=== PATIENT | female | born 2000 | race Hispanic/Latino ===

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

== ENCOUNTER 2022-02-10 20:58 | Emergency (ER) | payer OTHER ==
[2022-02-10] MEDS ORDERED: HYDROCODONE/APAP 5/325 MG TAB ONE (21:47)
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
[2022-02-10 23:26] VITALS: TEMP 98.9
[2022-02-10 23:27] VITALS: BP 116/68; O2SAT 99
== END 2022-02-10 23:05 | disposition home or self-care (01) ==
LOC: ER 20:58
DX: S09.90XA Unspecified injury of head, initial encounter (principal); S29.012A Strain of muscle and tendon of back wall of thorax, initial encounter
CPT/HCPCS: 70450; 71046; 72125; 99284

== ENCOUNTER 2024-04-25 09:53 | Emergency (ER) | payer OTHER ==
--- OUTSIDE RECORDS SUMMARY | 2024-04-25 09:58 | XMS REPORT | Continuity of Care Document ---
Author Name Unknown Address [address] [facility] [address]. [address] [place] [address] [facility] thconnect Address [address] [facility]. [address] [place] [address] Care Team Providers Care Casserole Preparer Name Role Phone Umer Du Philomena Primary Care Physician + [phone] JOVITA MAGALLON Attending Clinician Unavailable Naun Jovita DONOVAN Attending Clinician [phone] [facility]ending [facility]ician Unavailable Taylor Flor CNM Attending Clinician [phone] SHAYY CARRASQUILLO Attending Clinician Unavailable SAMANTHA NEFF Attending Clinician Unavailable LARISSA RODRIGUEZ Attending Clinician Unavailable 2, [facility] Attending Clinician Unavailable Samantha Neff MD Attending Clinician [phone] Doctor Unassigned, O'Neill Attending Clinician U Luigi Martinez CRNA Attending Clinician Dex Campos MD Attending Clinicia n Shea Wilder PA-C Attending Clinician [phone] SHEA WILDER Attending Clinician Unavailable CHEL TRAVIS Attending Clinician CITLALI DaveL Attending Clinician Unavashabbir labmei Ultrasound, Ang-Mfm Attending Clinician UnavailSwathi Rivers MD Attending Clinician + SWATHI MENG Attending Clinician Unadiane ailable Guillaume DO, Mk Attending Clinician [phone] GUILLAUME, MK Attending Clinician Unavailable 1, [facility] Attending Clinician Unavailab Cherelle Christiansen MD Attending Clinician [phone] CHERELLE GARRISON Attending Clinician Unavailable CHERELLE GARRISON Attending Clinician Unavailable UNKNOWN, ATTENDING Attending Clinician Unavailab mei White, [facility] Attending Clinician Un available Adwoa Dinh Attending Clinician [phone] Sherry Vitale MD Attending Clinician [phone] SHERRY VITALE Attending Clinician UnavailLarissa Leyva MD Attending Clinician [phone] Umer Du Attending Clinician [phone] MANISHA VACA Attending Clinician Unavailable Lab, [facility] Fam Pob I Attending Clinician Unavailab Jory Wood Attending Clinician [phone] JORY ALANIS Attending Clinician Unavailable Omaghomi [employer] F[employer] STITCHER, Johnayemshabbir Attending Clinician [phone] Manisha Ho Attending Clinician [phone] SAMANTHA NEFF Admitting Clinician Unavailable Samantha Neff MD Admitting Clinician [phone] Payers Payer Name Policy Type Policy Number Effective Date Expirati on Date Source Problems Condition Name Condition Details Condition Category Status Onset Date Resolution Date Last Treatment Date Treating Clinician Comments Source Presence of intrauteri ne contracept sondra device Presence of intrauteri ne contracept sondra device Disease Active 01-10 00:00: 00 [facility] Encounter for screening for maternal depression Encounter for screening for maternal depression Disease Active 8- 00:00: 00 [facility] Anemia of mother in , antepartum Anemia of mother in , antepartum Disease Active 4-05 00:00: 00 [facility] No known active problems No known active problems Disease [facility] Liveborn , of [place] , born in hospital by vaginal delivery Liveborn infant, of conklin , born in hospital by vaginal delivery Disease Resolve d 2022-0 7-11 00:00: 00 2022-11-20 00:00:00 2022-11-20 16:27:34 [facility] 39 weeks gestation of 39 weeks gestation of Disease Resolve d 2022-0 7-10 00:00: 00 2022-11-20 00:00:00 2022-11-20 16:27:37 [facility] Positive GBS test Positive GBS test Disease Resolve d 2022-0 7-10 00:00: 00 2022-11-20 00:00:00 2022-11-20 16:27:36 [facility] Anemia of mother in , antepartum Anemia of mother in , antepartum Disease Resolve d 2022-0 4-05 00:00: 00 2022-11-20 00:00:00 2022-11-20 16:27:38 [facility] High-risk in third trimester High-risk in third trimester Disease Resolve d 2021-1 2-05 00:00: 00 2022-11-20 00:00:00 2022-11-20 16:27:39 [facility] Nausea and vomiting during prior to 22 weeks gestation Nausea and vomiting during prior to 22 weeks gestation Disease Resolve d 2021-1 2-05 00:00: 00 2022-09-15 00:00:00 2022-09-15 15:22:00 [facility] Nausea and vomiting during prior to 22 weeks gestation Nausea and vomiting during prior to 22 weeks gestation Disease Resolve d 2021-1 2-05 00:00: 00 2022-09-15 00:00:00 2022-09-15 15:22:00 [facility] Allergies, Adverse Reactions, Alerts Allergy Name Allergy Type Status Severity Reaction(s) Onset Date Inactive Date Treating Clinician Comments Source NO KNOWN ALLERGIE S Drug Class Active [facility] Social History Social Habit Start Date Stop Date Quantity Comments Source ASSERTION 2022-02-03 00:00:00 [facility] History of tobacco use Passive smoker [facility] Alcoholic beverage intake 2024-01-18 00:00:00 2024-01-18 00:00:00 0 /d [facility] History of Social function 2024-01-18 00:00:00 2024-01-18 00:00:00 [facility] Alcohol intake 2023-04-19 00:00:00 2023-04-19 00:00:00 0 /d [facility] Tobacco use and exposure 2022-10-23 00:00:00 2022-10-23 00:00:00 Smokeless tobacco non-user [facility] Tobacco Comment 2022-10-23 00:00:00 2022-10-23 00:00:00 Last approx 1 year ago [facility] Exposure to SARS-CoV-2 (event) 2022-08-14 00:00:00 2022-08-24 15:40:00 Not sure [facility] Sex assigned at 2002 00:00:00 2000 00:00:00 [facility] Smoking Status Start Date Stop Date Source Never smoked tobacco [facility] Medications Ordered Medication Name Filled Medication Name Start Date Stop Date Current Medication? Ordering Clinician Indication Dosage Frequency Signature (SIG) Comments Components Source metroNIDAZO LE 500 mg tablet 2023-04 00:00: 00 Yes [id number] 500mg Take 1 tablet by mouth every 12 (twelve) hours. [facility] fluconazole 150 mg tablet 2023-04 00:00: 00 01-21 04:59 :00 No [id number] 150mg Take 1 tablet by mouth once now for 1 dose. [facility] metroNIDAZO LE 500 mg tablet 11-14 00:00: 00 11-22 04:59 :00 No [id number] 500mg Take 1 tablet by mouth in the morning and 1 tablet in the evening. Do all this for 7 days. [facility] fluconazole (DIFLUCAN) 150 mg tablet 11-14 00:00: 00 11-15 04:59 :00 No [id number] 150mg Take 1 tablet by mouth once now for 1 dose. [facility] levonorgest reL (KYLEENA) IUD 1 Device 01-10 21:00: 00 01-10 20:15 :00 No [id number] 1{devic e} [facility] miSOPROStoL 200 mcg tablet 11-20 00:00: 00 01-10 00:00 :00 No [id number] 200ug Take 1 tablet by mouth SEE-INSTRU CTIONS. Take one tab the night before and one tab the morning of procedure [facility] ferrous sulfate tablet 325 mg 10-25 13:00: 00 Yes 325mg 325 mg, Oral, BID, First dose on Sun10/25/22 at 0800, Until Discontinu ed, Routine [facility] rho(D) immune globulin (RHOGAM) syringe 300 mcg 10-24 06:36: 22 Yes 300ug 300 mcg, Intramuscu lar, ONCE, For 1 dose, Conditiona l, Routine [facility] witch Klaus (TUCKS) 50 % topical pad 10-24 06:36: 01 Yes Topical, Q4HPRN, Starting on Sun10/24/22 at 0136, Until Discontinu ed, Routine, rectal/hem orrhoidal pain [facility] HYDROcodone -acetaminop hen (NORCO 5) 5-325 mg tablet 1 tablet 10-24 06:35: 26 Yes 1{tbl} 1 tablet, Oral, Q6HPRN, Starting on Sun10/24/22 at 0135, Until Discontinu ed, Routine, Pain (scale 7-10) [facility] ibuprofen (IBU) tablet 600 mg 10-24 06:35: 26 Yes 600mg 600 mg, Oral, Q6HPRN, Starting on Sun10/24/22 at 0135, Until Discontinu ed, Routine, Pain (scale 4-6) [facility] acetaminoph en (TYLENOL) tablet 650 mg 10-24 06:35: 26 Yes 650mg 650 mg, Oral, Q6HPRN, Starting on Sun10/24/22 at 013, Until Discontinu ed, Routine, Pain (scale 1-3) [facility] diphenhydrA MINE (BENADRYL) tablet 25 mg 10-24 06:35: 26 Yes 25mg 25 mg, Oral, Q6HPRN, Starting on Sun10/24/22 at 134, Until Discontinu ed, Routine, Sleep, Itching [facility] ondansetron (ZOFRAN (PF)) injection 4 mg 10-24 06:35: 26 Yes 4mg 4 mg, Slow IV Push, Q8HPRN, Starting on Sun10/24/22 at 134, Until Discontinu ed, Routine, Nausea and Vomiting (N/V) [facility] simethicone (GAS RELIEF (SIMETHICON E)) chewable tablet 160 mg 10-24 06:35: 26 Yes 160mg 160 mg, Oral, PC+HSPRN, Starting on Sun10/24/22 at 013, Until Discontinu ed, Routine, Gas [facility] docusate (COLACE) capsule 200 mg 10-24 06:35: 26 Yes 200mg 200 mg, Oral, QDAILYPRN, Starting on Sun10/24/22 at 013, Until Discontinu ed, Routine, Constipati on [facility] magnesium hydroxide (MILK OF MAGNESIA) 400 mg/5 mL suspension 30 mL 10-24 06:35: 26 Yes 30mL 30 mL, Oral, QDAILYPRN, Starting on Sun10/24/22 at 134, Until Discontinu ed, Routine, Constipati on [facility] benzocaine- menthol (DERMOPLAST ) 20-0.5 % topical spray 10-24 06:35: 26 Yes Topical, PRN, Starting on Sun10/24/22 at 0135, Until Discontinu ed, Routine, Perineum discomfort [facility] diphenoxyla te-atropine (LOMOTIL) 2.5-0.025 mg tablet 1 tablet 10-24 06:22: 00 10-24 06:22 :00 No 1{tbl} 1 tablet, Oral, ONCE, 1 dose, On Sun10/24/22 at 0130, [facility] pivacaine 2 mcg/mL-0.1 % (PF) in NS 200 mL epidural infusion RTU 10-24 01:06: 00 10-24 11:32 :43 No Epidural, ONCE INTRA PROCEDURE, Starting on Sun10/23/22 at 2006, Until Discontinu ed, Routine, Intra-op [facility] lidocaine-e pinephrine (XYLOCAINE W/EPINEPHRI NE) 1.5 %-1:200,000 injection 10-24 00:57: 00 10-24 11:32 :43 No Intraderma l, ONCE INTRA PROCEDURE, Starting on Sun10/23/22 at 1957, Until Discontinu ed, Routine, Intra-op [facility] vitamin w/FA tablet 10-24 00:00: 00 11-13 00:00 :00 No [id number] 1{tbl} Take 1 tablet by mouth in the morning. [facility] docusate 100 mg capsule 10-24 00:00: 00 11-13 00:00 :00 No [id number] 200mg Take 2 capsules by mouth once daily as needed for Constipati on. [facility] ferrous sulfate 325 mg (65 mg iron) tablet 10-24 00:00: 00 11-13 00:00 :00 No [id number] 325mg Take 1 tablet by mouth in the morning and 1 tablet in the evening. [facility] ibuprofen 600 mg tablet 10-24 00:00: 00 11-13 00:00 :00 No [id number] 600mg Take 1 tablet by mouth every 6 (six) hours as needed (Pain). Take with food or milk. [facility] oxytocin (PITOCIN) 30 units in NS 500 mL IV infusion 10-23 23:57: 32 10-24 06:36 :20 No 2mU/min at 2-40 mL/hr, IV Infusion, TITRATE, Starting on Sun10/23/22 at 1857, Until Sun10/24/22 at 0136, PUNEET [facility] misoprostol (CYTOTEC) quarter-tab let 25 mcg 10-23 15:45: 00 10-24 06:36 :20 No 25ug 25 mcg, Vaginal, Q4H ABX, First dose on Sun10/23/22 at 1045, Until Discontinu ed, Routine [facility] misoprostol (CYTOTEC) quarter-tab let 25 mcg 10-23 15:45: 00 10-23 17:10 :00 No 25ug 25 mcg, Oral, ONCE, 1 dose, On Sun10/23/22 at 1045, Routine [facility] FENTanyl PF (SUBLIMAZE (PF)) injection 50 mcg 10-23 15:36: 06 10-24 06:36 :20 No 50ug 50 mcg, Slow IV Push, Q2HPRN, Starting on Sun10/23/22 at 1036, Until Sun10/24/22 at 0136, Routine, contractio n pain without an epidural and SVE < 8 cm and Cat I strip [facility] tranexamic acid (CYKLOKAPRO N) 1,000 mg in NaCl 0.9% (NS) 250 mL piggyback 10-23 15:36: 06 10-24 06:44 :00 No 1000mg 1,000 mg, IV Piggyback, PRN, 1 dose, Starting on Sun10/23/22 at 1036, Until Discontinu ed, Administer over 10 Minutes, 250 mL [facility] carboprost (HEMABATE) injection 250 mcg 10-23 15:36: 06 10-24 06:20 :00 No 250ug 250 mcg, Intramuscu lar, Q2HPRN, 1 dose, Starting on Sun10/23/22 at 1036, Until Discontinu ed, Routine, PPH [facility] methylergon ovine (METHERGINE ) injection 0.2 mg 10-23 15:36: 06 10-24 06:14 :00 No .2mg 0.2 mg, Intramuscu lar, Q4HPRN, 1 dose, Starting on Sun10/23/22 at 1036, Until Discontinu ed, Routine, PPH [facility] D5W-LR IV infusion 1,000 mL 10-23 15:36: 05 10-24 06:36 :20 No 1000mL at 1-125 mL/hr, IV Infusion, TITRATE, Starting on Sun10/23/22 at 1036, Until Sun10/24/22 at 0136, Routine [facility] metroNIDAZO LE (FLAGYL) 500 mg tablet 07-20 00:00: 00 09-29 00:00 :00 No [id number] 500mg Take 1 tablet by mouth every 12 (twelve) hours. [facility] fluconazole (DIFLUCAN) 150 mg tablet 07-20 00:00: 00 07-21 04:59 :00 No [id number] 150mg Take 1 tablet by mouth once now for 1 dose. [facility] ferrous sulfate (IRON, FERROUS SULFATE,) 325 mg (65 mg iron) tablet 07-19 00:00: 00 10-24 00:00 :00 No [id number] 325mg Take 1 tablet by mouth in the morning and 1 tablet in the evening. [facility] PNV 102-iron-fo late-dha (VITAFOL FE PLUS) 90 mg iron- 1 mg-200 mg Cap 2021-04 00:00: 00 Yes [id number] Take 1 TAB-CAP/M2 by mouth daily. [facility] PNV 102-iron-fo late-dha (VITAFOL FE PLUS) 90 mg iron- 1 mg-200 mg Cap 2021-04 00:00: 00 10-24 00:00 :00 No [id number] Take 1 TAB-CAP/M2 by mouth daily. [facility] pyridoxine, VITAMIN B-6, (VITAMIN B-6) 25 mg tablet 2022-1 2-05 00:00: 00 09-29 00:00 :00 No [id number] 25mg Take 1 tablet by mouth every 6 (six) hours as needed for Nausea and Vomiting (N/V). [facility] doxylamine (UNISOM, DOXYLAMINE, ) 25 mg tablet 2021-04 00:00: 00 09-29 00:00 :00 No [id number] 25mg Take 1 tablet by mouth at bedtime as needed for Nausea and Vomiting (N/V). [facility] metroNIDAZO LE 500 mg tablet 01-06 00:00: 00 09-29 00:00 :00 No [id number] 500mg Take 1 tablet by mouth every 12 (twelve) hours. [facility] azithromyci n 500 mg tablet 09-21 00:00: 00 01-06 00:00 :00 No [id number] 1000mg Take 2 tablets by mouth daily. [facility] fluconazole 150 mg tablet 09-21 00:00: 00 09-22 04:59 :00 No [id number] 150mg Take 1 tablet by mouth once now for 1 dose. [facility] metroNIDAZO LE 500 mg tablet 09-20 00:00: 00 01-06 00:00 :00 No [id number] 500mg Take 1 tablet by mouth every 12 (twelve) hours. [facility] VYVANSE 50 mg capsule 08 00:00: 00 10-24 00:00 :00 No 50mg Take 50 mg by mouth every morning. [facility] LOESTRIN FE (LOESTRIN FE 1/20) 1 mg-20 mcg (21)/75 mg (7) tablet 2019-04 00:00: 00 01-04 00:00 :00 No [id number] 1{tbl} Take 1 tablet by mouth daily. [facility] MYDAYIS 37.5 mg CT24 9-14 00:00: 00 01-04 00:00 :00 No TAKE 1 CAPSULE BY MOUTH EVERY DAY IN THE MORNING [facility] dextroamphe tamine-amph etamine 5 mg tablet 06-19 00:00: 00 01-04 00:00 :00 No TAKE 1 TABLET BY MOUTH EVERY DAY AT LUNCH [facility] Immunizations Ordered Immunization Name Filled Immunization Name Date Status Comments Source Influenza Virus Vaccine Quad IM, Preserv and ABX Free 6 MO-64 YRS (FLUCELVAX) 2023-04-19 00:00:00 Completed [facility] Influenza Virus Vaccine Quad IM, Preserv and ABX Free 6 MO-64 YRS (FLUCELVAX) 2023-04-19 00:00:00 Completed [facility] Influenza Virus Vaccine Quad IM, Preserv and ABX Free 6 MO-64 YRS (FLUCELVAX) 2023-04-19 00:00:00 Completed [facility] Influenza Virus Vaccine Quad IM, Preserv and ABX Free 6 MO-64 YRS (FLUCELVAX) 2023-04-19 00:00:00 Completed [facility] TDAP 2022-08-10 00:00:00 Completed [facility] TDAP 2022-08-10 00:00:00 Completed [facility] TDAP 2022-08-10 00:00:00 Completed [facility] TDAP 2022-08-10 00:00:00 Completed [facility] TDAP 2022-08-10 00:00:00 Completed [facility] TDAP 2022-08-10 00:00:00 Completed [facility] TDAP 2022-08-10 00:00:00 Completed [facility] TDAP 2022-08-10 00:00:00 Completed [facility] TDAP 2022-08-10 00:00:00 Completed [facility] TDAP 2022-08-10 00:00:00 Completed [facility] TDAP 2022-08-10 00:00:00 Completed [facility] TDAP 2022-08-10 00:00:00 Completed [facility] TDAP 2022-08-10 00:00:00 Completed [facility] TDAP 2022-08-10 00:00:00 Completed [facility] TDAP 2022-08-10 00:00:00 Completed [facility] TDAP 2022-08-10 00:00:00 Completed [facility] TDAP 2022-08-10 00:00:00 Completed [facility] Influenza Virus Vaccine Quad IM, Preserv and ABX Free 6 MO-64 YRS 2022-03-20 00:00:00 Completed [facility] Influenza Virus Vaccine Quad IM, Preserv and ABX Free 6 MO-64 YRS (FLUCELVAX) 2022-03-20 00:00:00 Completed [facility] Influenza Virus Vaccine Quad IM, Preserv and ABX Free 6 MO-64 YRS (FLUCELVAX) 2022-03-20 00:00:00 Completed [facility] Influenza Virus Vaccine Quad IM, Preserv and ABX Free 6 MO-64 YRS (FLUCELVAX) 2022-03-20 00:00:00 Completed [facility] Influenza Virus Vaccine Quad IM, Preserv and ABX Free 6 MO-64 YRS (FLUCELVAX) 2022-03-20 00:00:00 Completed [facility] Influenza Virus Vaccine Quad IM, Preserv and ABX Free 6 MO-64 YRS 2022-03-20 00:00:00 Completed [facility] Influenza Virus Vaccine Quad IM, Preserv and ABX Free 6 MO-64 YRS 2022-03-20 00:00:00 Completed [facility] Influenza Virus Vaccine Quad IM, Preserv and ABX Free 6 MO-64 YRS 2022-03-20 00:00:00 Completed [facility] Influenza Virus Vaccine Quad IM, Preserv and ABX Free 6 MO-64 YRS 2022-03-20 00:00:00 Completed [facility] Influenza Virus Vaccine Quad IM, Preserv and ABX Free 6 MO-64 YRS 2022-03-20 00:00:00 Completed [facility] Influenza Virus Vaccine Quad IM, Preserv and ABX Free 6 MO-64 YRS 2022-03-20 00:00:00 Completed [facility] Influenza Virus Vaccine Quad IM, Preserv and ABX Free 6 MO-64 YRS 2022-03-20 00:00:00 Completed [facility] Influenza Virus Vaccine Quad IM, Preserv and ABX Free 6 MO-64 YRS 2022-03-20 00:00:00 Completed [facility] Influenza Virus Vaccine Quad IM, Preserv and ABX Free 6 MO-64 YRS 2022-03-20 00:00:00 Completed [facility] Influenza Virus Vaccine Quad IM, Preserv and ABX Free 6 MO-64 YRS 2022-03-20 00:00:00 Completed [facility] Influenza Virus Vaccine Quad IM, Preserv and ABX Free 6 MO-64 YRS 2022-03-20 00:00:00 Completed [facility] Influenza Virus Vaccine Quad IM, Preserv and ABX Free 6 MO-64 YRS 2022-03-20 00:00:00 Completed [facility] Influenza Virus Vaccine Quad IM, Preserv and ABX Free 6 MO-64 YRS 2022-03-20 00:00:00 Completed [facility] Influenza Virus Vaccine Quad IM, Preserv and ABX Free 6 MO-64 YRS 2022-03-20 00:00:00 Completed [facility] Influenza Virus Vaccine Quad IM, Preserv and ABX Free 6 MO-64 YRS 2022-03-20 00:00:00 Completed [facility] Influenza Virus Vaccine Quad IM, Preserv and ABX Free 6 MO-64 YRS 2022-03-20 00:00:00 Completed [facility] Influenza Virus Vaccine Quad IM, Preserv and ABX Free 6 MO-64 YRS 2022-03-20 00:00:00 Completed [facility] Influenza Virus Vaccine Quad IM, Preserv and ABX Free 6 MO-64 YRS 2022-03-20 00:00:00 Completed [facility] Influenza Virus Vaccine Quad IM, Preserv and ABX Free 6 MO-64 YRS 2022-03-20 00:00:00 Completed [facility] Influenza Virus Vaccine Quad IM, Preserv and ABX Free 6 MO-64 YRS 2022-03-20 00:00:00 Completed [facility] Influenza Virus Vaccine Quad IM, Preserv and ABX Free 6 MO-64 YRS 2022-03-20 00:00:00 Completed [facility] Influenza Virus Vaccine Quad IM, Preserv and ABX Free 6 MO-64 YRS 2022-03-20 00:00:00 Completed [facility] Influenza Virus Vaccine Quad IM, Preserv and ABX Free 6 MO-64 YRS 2022-03-20 00:00:00 Completed [facility] Influenza Virus Vaccine Quad IM, Preserv and ABX Free 6 MO-64 YRS 2022-03-20 00:00:00 Completed [facility] Influenza Virus Vaccine Quad IM, Preserv and ABX Free 6 MO-64 YRS 2022-03-20 00:00:00 Completed [facility] Influenza Virus Vaccine Quad IM, Preserv and ABX Free 6 MO-64 YRS 2022-03-20 00:00:00 Completed [facility] Influenza Virus Vaccine Quad IM, Preserv and ABX Free 6 MO-64 YRS 2022-03-20 00:00:00 Completed [facility] Influenza Virus Vaccine Quad IM, Preserv and ABX Free 6 MO-64 YRS 2022-03-20 00:00:00 Completed [facility] Influenza Virus Vaccine Quad IM, Preserv and ABX Free 6 MO-64 YRS 2022-03-20 00:00:00 Completed [facility] Influenza Virus Vaccine Quad IM, Preserv and ABX Free 6 MO-64 YRS 2022-03-20 00:00:00 Completed [facility] Influenza Virus Vaccine Quad IM, Preserv and ABX Free 6 MO-64 YRS 2022-03-20 00:00:00 Completed [facility] Influenza Virus Vaccine Quad IM, Preserv and ABX Free 6 MO-64 YRS 2022-03-20 00:00:00 Completed [facility] Influenza Virus Vaccine Quad IM, Preserv and ABX Free 6 MO-64 YRS 2022-03-20 00:00:00 Completed [facility] Influenza Virus Vaccine Quad IM, Preserv and ABX Free 6 MO-64 YRS 2022-03-20 00:00:00 Completed [facility] Influenza Virus Vaccine Quad IM, Preserv and ABX Free 6 MO-64 YRS 2022-03-20 00:00:00 Completed [facility] HPV9 2017-11-13 00:00:00 Completed HPV9 2017-11-13 00:00:00 Completed HPV9 2017-11-13 00:00:00 Completed HPV9 2017-11-13 00:00:00 Completed HPV9 2016-11-17 00:00:00 Completed HPV9 2016-11-17 00:00:00 Completed HPV9 2016-11-17 00:00:00 Completed HPV9 2016-11-17 00:00:00 Completed TDAP 2015-10-12 00:00:00 Completed [facility] Meningococcal Polysaccharide (groups A, C, Y and W-135) conjugate vaccine (MCV4P) 2015-10-12 00:00:00 Completed TDAP 2015-10-12 00:00:00 Completed [facility] Meningococcal Polysaccharide (groups A, C, Y and W-135) conjugate vaccine (MCV4P) 2015-10-12 00:00:00 Completed TDAP 2015-10-12 00:00:00 Completed [facility] Meningococcal Polysaccharide (groups A, C, Y and W-135) conjugate vaccine (MCV4P) 2015-10-12 00:00:00 Completed TDAP 2015-10-12 00:00:00 Completed [facility] Meningococcal Polysaccharide (groups A, C, Y and W-135) conjugate vaccine (MCV4P) 2015-10-12 00:00:00 Completed Influenza Virus Vaccine Quad .5 mL IM 6+ MO (FLUZONE/FLULAVAL/FL UARIX) 2014-04-20 00:00:00 Completed Influenza Virus Vaccine Quad .5 mL IM 6+ MO (FLUZONE/FLULAVAL/FL UARIX) 2014-04-20 00:00:00 Completed Influenza Virus Vaccine Quad .5 mL IM 6+ MO (FLUZONE/FLULAVAL/FL UARIX) 2014-04-20 00:00:00 Completed Influenza Virus Vaccine Quad .5 mL IM 6+ MO (FLUZONE/FLULAVAL/FL UARIX) 2014-04-20 00:00:00 Completed DTaP, Unspecified Formulation 2006-11-30 00:00:00 Completed Proquad (MMR/VARICELLA) 2006-11-30 00:00:00 Completed IPV 2006-11-30 00:00:00 Completed DTaP, Unspecified Formulation 2006-11-30 00:00:00 Completed Proquad (MMR/VARICELLA) 2006-11-30 00:00:00 Completed IPV 2006-11-30 00:00:00 Completed DTaP, Unspecified Formulation 2006-11-30 00:00:00 Completed Proquad (MMR/VARICELLA) 2006-11-30 00:00:00 Completed IPV 2006-11-30 00:00:00 Completed DTaP, Unspecified Formulation 2006-11-30 00:00:00 Completed Proquad (MMR/VARICELLA) 2006-11-30 00:00:00 Completed IPV 2006-11-30 00:00:00 Completed HEPATITIS A 2006-06-19 00:00:00 Completed HEPATITIS A 2006-06-19 00:00:00 Completed HEPATITIS A 2006-06-19 00:00:00 Completed HEPATITIS A 2006-06-19 00:00:00 Completed HEPATITIS A 2005-06-26 00:00:00 Completed Pneumococcal 7 Conjugate, PCV7 (Prevnar7) 2005-06-26 00:00:00 Completed HEPATITIS A 2005-06-26 00:00:00 Completed Pneumococcal 7 Conjugate, PCV7 (Prevnar7) 2005-06-26 00:00:00 Completed HEPATITIS A 2005-06-26 00:00:00 Completed Pneumococcal 7 Conjugate, PCV7 (Prevnar7) 2005-06-26 00:00:00 Completed HEPATITIS A 2005-06-26 00:00:00 Completed Pneumococcal 7 Conjugate, PCV7 (Prevnar7) 2005-06-26 00:00:00 Completed DTaP, Unspecified Formulation 2004-06-27 00:00:00 Completed HIB 4 Dose Schedule 2004-06-27 00:00:00 Completed DTaP, Unspecified Formulation 2004-06-27 00:00:00 Completed HIB 4 Dose Schedule 2004-06-27 00:00:00 Completed DTaP, Unspecified Formulation 2004-06-27 00:00:00 Completed HIB 4 Dose Schedule 2004-06-27 00:00:00 Completed DTaP, Unspecified Formulation 2004-06-27 00:00:00 Completed HIB 4 Dose Schedule 2004-06-27 00:00:00 Completed DTaP, Unspecified Formulation 2003-12-14 00:00:00 Completed HIB 4 Dose Schedule 2003-12-14 00:00:00 Completed MMR 2003-12-14 00:00:00 Completed IPV 2003-12-14 00:00:00 Completed Varicella (varivax)(chicken pox) 2003-12-14 00:00:00 Completed DTaP, Unspecified Formulation 2003-12-14 00:00:00 Completed HIB 4 Dose Schedule 2003-12-14 00:00:00 Completed MMR 2003-12-14 00:00:00 Completed IPV 2003-12-14 00:00:00 Completed Varicella (varivax)(chicken pox) 2003-12-14 00:00:00 Completed DTaP, Unspecified Formulation 2003-12-14 00:00:00 Completed HIB 4 Dose Schedule 2003-12-14 00:00:00 Completed MMR 2003-12-14 00:00:00 Completed IPV 2003-12-14 00:00:00 Completed Varicella (varivax)(chicken pox) 2003-12-14 00:00:00 Completed DTaP, Unspecified Formulation 2003-12-14 00:00:00 Completed HIB 4 Dose Schedule 2003-12-14 00:00:00 Completed MMR 2003-12-14 00:00:00 Completed IPV 2003-12-14 00:00:00 Completed Varicella (varivax)(chicken pox) 2003-12-14 00:00:00 Completed DTaP, Unspecified Formulation 2003-07-07 00:00:00 Completed Hep B, Adol or Pedi Dosage 2003-07-07 00:00:00 Completed HIB 4 Dose Schedule 2003-07-07 00:00:00 Completed Pneumococcal 7 Conjugate, PCV7 (Prevnar7) 2003-07-07 00:00:00 Completed IPV 2003-07-07 00:00:00 Completed DTaP, Unspecified Formulation 2003-07-07 00:00:00 Completed Hep B, Adol or Pedi Dosage 2003-07-07 00:00:00 Completed HIB 4 Dose Schedule 2003-07-07 00:00:00 Completed Pneumococcal 7 Conjugate, PCV7 (Prevnar7) 2003-07-07 00:00:00 Completed IPV 2003-07-07 00:00:00 Completed DTaP, Unspecified Formulation 2003-07-07 00:00:00 Completed Hep B, Adol or Pedi Dosage 2003-07-07 00:00:00 Completed HIB 4 Dose Schedule 2003-07-07 00:00:00 Completed Pneumococcal 7 Conjugate, PCV7 (Prevnar7) 2003-07-07 00:00:00 Completed IPV 2003-07-07 00:00:00 Completed DTaP, Unspecified Formulation 2003-07-07 00:00:00 Completed Hep B, Adol or Pedi Dosage 2003-07-07 00:00:00 Completed HIB 4 Dose Schedule 2003-07-07 00:00:00 Completed Pneumococcal 7 Conjugate, PCV7 (Prevnar7) 2003-07-07 00:00:00 Completed IPV 2003-07-07 00:00:00 Completed DTaP, Unspecified Formulation 2003-01-02 00:00:00 Completed HIB 4 Dose Schedule 2003-01-02 00:00:00 Completed Pneumococcal 7 Conjugate, PCV7 (Prevnar7) 2003-01-02 00:00:00 Completed IPV 2003-01-02 00:00:00 Completed DTaP, Unspecified Formulation 2003-01-02 00:00:00 Completed HIB 4 Dose Schedule 2003-01-02 00:00:00 Completed Pneumococcal 7 Conjugate, PCV7 (Prevnar7) 2003-01-02 00:00:00 Completed IPV 2003-01-02 00:00:00 Completed DTaP, Unspecified Formulation 2003-01-02 00:00:00 Completed HIB 4 Dose Schedule 2003-01-02 00:00:00 Completed Pneumococcal 7 Conjugate, PCV7 (Prevnar7) 2003-01-02 00:00:00 Completed IPV 2003-01-02 00:00:00 Completed DTaP, Unspecified Formulation 2003-01-02 00:00:00 Completed HIB 4 Dose Schedule 2003-01-02 00:00:00 Completed Pneumococcal 7 Conjugate, PCV7 (Prevnar7) 2003-01-02 00:00:00 Completed IPV 2003-01-02 00:00:00 Completed Hep B, Adol or Pedi Dosage 2002 00:00:00 Completed Hep B, Adol or Pedi Dosage 2002 00:00:00 Completed Hep B, Adol or Pedi Dosage 2002 00:00:00 Completed Hep B, Adol or Pedi Dosage 2002 00:00:00 Completed Hep B, Adol or Pedi Dosage 2002 00:00:00 Completed Hep B, Adol or Pedi Dosage 2002 00:00:00 Completed Hep B, Adol or Pedi Dosage 2002 00:00:00 Completed Hep B, Adol or Pedi Dosage 2002 00:00:00 Completed Influenza Virus Vaccine Quad IM, Preserv and ABX Free 6 MO-64 YRS (FLUCELVAX) Unknown Completed [facility] TDAP Unknown Completed [facility] Influenza Virus Vaccine Quad IM, Preserv and ABX Free 6 MO-64 YRS (FLUCELVAX) Unknown Completed [facility] TDAP Unknown Completed [facility] Influenza Virus Vaccine Quad IM, Preserv and ABX Free 6 MO-64 YRS (FLUCELVAX) Unknown Completed [facility] TDAP Unknown Completed [facility] Influenza Virus Vaccine Quad IM, Preserv and ABX Free 6 MO-64 YRS (FLUCELVAX) Unknown Completed [facility] TDAP Unknown Completed [facility] TDAP Unknown Completed [facility] TDAP Unknown Completed [facility] Influenza Virus Vaccine Quad IM, Preserv and ABX Free 6 MO-64 YRS (FLUCELVAX) Unknown Completed [facility] Influenza Virus Vaccine Quad IM, Preserv and ABX Free 6 MO-64 YRS (FLUCELVAX) Unknown Completed [facility] Influenza Virus Vaccine Quad IM, Preserv and ABX Free 6 MO-64 YRS (FLUCELVAX) Unknown Completed [facility] TDAP Unknown Completed [facility] Influenza Virus Vaccine Quad IM, Preserv and ABX Free 6 MO-64 YRS (FLUCELVAX) Unknown Completed [facility] TDAP Unknown Completed [facility] DTaP, Unspecified Formulation Unknown Completed [facility] Influenza Virus Vaccine Quad .5 mL IM 6+ MO (FLUZONE/FLULAVAL/FL UARIX) Unknown Completed [facility] HEPATITIS A Unknown Completed [facility] Hep B, Adol or Pedi Dosage Unknown Completed [facility] HIB 4 Dose Schedule Unknown Completed [facility] HPV9 Unknown Completed [facility] Meningococcal Polysaccharide (groups A, C, Y and W-135) conjugate vaccine (MCV4P) Unknown Completed [facility] MMR Unknown Completed [facility] Proquad (MMR/VARICELLA) Unknown Completed [facility] Pneumococcal 7 Conjugate, PCV7 (Prevnar7) Unknown Completed [facility] IPV Unknown Completed [facility] Varicella (varivax)(chicken pox) Unknown Completed [facility] Influenza Virus Vaccine Quad IM, Preserv and ABX Free 6 MO-64 YRS (FLUCELVAX) Unknown Completed [facility] TDAP Unknown Completed [facility] DTaP, Unspecified Formulation Unknown Completed [facility] Influenza Virus Vaccine Quad .5 mL IM 6+ MO (FLUZONE/FLULAVAL/FL UARIX) Unknown Completed [facility] HEPATITIS A Unknown Completed [facility] Hep B, Adol or Pedi Dosage Unknown Completed [facility] HIB 4 Dose Schedule Unknown Completed [facility] HPV9 Unknown Completed [facility] Meningococcal Polysaccharide (groups A, C, Y and W-135) conjugate vaccine (MCV4P) Unknown Completed [facility] MMR Unknown Completed [facility] Proquad (MMR/VARICELLA) Unknown Completed [facility] Pneumococcal 7 Conjugate, PCV7 (Prevnar7) Unknown Completed [facility] IPV Unknown Completed [facility] Varicella (varivax)(chicken pox) Unknown Completed [facility] Vital Signs Vital Name Observation Time Observation Value Comments S ource Systolic blood pressure 2024-01-18 18:09:00 111 mm[Hg] [facility] Diastolic blood pressure 2024-01-18 18:09:00 65 mm[Hg] [facility] Heart rate 2024-01-18 18:09:00 85 /min [facility] Body temperature 2024-01-18 18:09:00 36.61 Shira [facility] Respiratory rate 2024-01-18 18:09:00 16 /min [facility] Body height 2024-01-18 18:09:00 149.9 cm [facility] Body weight 2024-01-18 18:09:00 59.024 kg [facility] BMI 2024-01-18 18:09:00 26.28 kg/m2 [facility] Systolic blood pressure 2023-11-14 19:41:00 115 mm[Hg] [facility] Diastolic blood pressure 2023-11-14 19:41:00 70 mm[Hg] [facility] Heart rate 2023-11-14 19:41:00 90 /min [facility] Body temperature 2023-11-14 19:41:00 35.83 Shira [facility] Respiratory rate 2023-11-14 19:41:00 18 /min [facility] Body height 2023-11-14 19:41:00 [facility] 2023-11-14 19:41:00 57.698 [facility] BMI 2023-11-14 19:41:00 25.69 kg/m2 [facility] Systolic blood pressure 2023-04-19 21:18:00 111 mm[Hg] [facility] Diastolic blood pressure 2023-04-19 21:18:00 62 mm[Hg] [facility] Heart rate 2023-04-19 21:18:00 67 /min [facility] Respiratory rate 2023-04-19 21:18:00 18 /min [facility] Body height 2023-04-19 21:18:00 149.9 cm [facility] Body weight 2023-04-19 21:18:00 53.071 kg [facility] BMI 2023-04-19 21:18:00 23.63 kg/m2 [facility] Systolic blood pressure 2023-01-10 14:56:00 109 mm[Hg] [facility] Diastolic blood pressure 2023-01-10 14:56:00 65 mm[Hg] [facility] Heart rate 2023-01-10 14:56:00 80 /min [facility] Body temperature 2023-01-10 14:56:00 37.11 Shira [facility] Respiratory rate 2023-01-10 14:56:00 18 /min [facility] Body height 2023-01-10 14:56:00 149.9 [facility] Body weight 2023-01-10 14:56:00 53.524 kg [facility] BMI 2023-01-10 14:56:00 23.83 kg/m2 [facility] Systolic blood pressure 2022-11-20 21:45:00 112 mm[Hg] [facility] Diastolic blood pressure 2022-11-20 21:45:00 70 mm[Hg] [facility] Heart rate 2022-11-20 21:45:00 66 /min [facility] Body temperature 2022-11-20 21:45:00 36.67 Shira [facility] Body height 2022-11-20 21:45:00 149.9 cm [facility] Body weight 2022-11-20 21:45:00 55.883 kg [facility] BMI 2022-11-20 21:45:00 24.88 kg/m2 [facility] Systolic blood pressure 2022-10-25 12:38:00 111 mm[Hg] [facility] Diastolic blood pressure 2022-10-25 12:38:00 57 mm[Hg] [facility] Body temperature 2022-10-25 12:38:00 36.5 Shira [facility] Heart rate 2022-10-25 06:04:00 89 /min [facility] Respiratory rate 2022-10-25 06:04:00 18 /min [facility] Oxygen saturation in Arterial blood by Pulse oximetry 2022-10-25 06:04:00 100 /min [facility] Body height 2022-10-23 15:20:00 149.9 cm [facility] Body weight 2022-10-23 15:20:00 68.947 kg [facility] BMI 2022-10-23 15:20:00 30.70 kg/m2 [facility] Systolic blood pressure 2022-10-16 19:51:00 107 mm[Hg] [facility] Diastolic blood pressure 2022-10-16 19:51:00 59 mm[Hg] [facility] Heart rate 2022-10-16 19:51:00 91 /min [facility] Body temperature 2022-10-16 19:51:00 36.89 Shira [facility] Respiratory rate 2022-10-16 19:51:00 18 /min [facility] Body height 2022-10-16 19:51:00 149.9 cm [facility] Body weight 2022-10-16 19:51:00 68.04 kg [facility] BMI 2022-10-16 19:51:00 30.30 kg/m2 [facility] Systolic blood pressure 2022-09-28 20:53:00 105 mm[Hg] [facility] Diastolic blood pressure 2022-09-28 20:53:00 57 mm[Hg] [facility] Heart rate 2022-09-28 20:53:00 81 /min [facility] Body temperature 2022-09-28 20:53:00 36.61 Shira [facility] Respiratory rate 2022-09-28 20:53:00 18 /min [facility] Body height 2022-09-28 20:53:00 149.9 cm [facility] Body weight 2022-09-28 20:53:00 67.042 kg [facility] BMI 2022-09-28 20:53:00 29.85 kg/m2 [facility] Oxygen saturation in Arterial blood by Pulse oximetry 2022-09-28 20:53:00 99 /min [facility] Systolic blood pressure 2022-09-15 20:11:00 99 mm[Hg] [facility] Diastolic blood pressure 2022-09-15 20:11:00 63 mm[Hg] [facility] Heart rate 2022-09-15 20:11:00 81 /min [facility] Respiratory rate 2022-09-15 20:11:00 18 /min [facility] Body height 2022-09-15 20:11:00 149.9 cm [facility] Body weight 2022-09-15 20:11:00 66.679 kg [facility] BMI 2022-09-15 20:11:00 29.69 kg/m2 [facility] Systolic blood pressure 2022-08-24 21:00:00 100 mm[Hg] [facility] Diastolic blood pressure 2022-08-24 21:00:00 65 mm[Hg] [facility] Heart rate 2022-08-24 21:00:00 97 /min [facility] Body temperature 2022-08-24 21:00:00 36.83 Shira [facility] Respiratory rate 2022-08-24 21:00:00 18 /min [facility] Body height 2022-08-24 21:00:00 [facility] 2022-08-24 21:00:00 64.411 [facility] BMI 2022-08-24 21:00:00 28.68 kg/m2 [facility] Systolic blood pressure 2022-08-10 20:38:00 95 mm[Hg] [facility] Diastolic blood pressure 2022-08-10 20:38:00 60 mm[Hg] [facility] Heart rate 2022-08-10 20:38:00 106 /min [facility] Body temperature 2022-08-10 20:38:00 36.67 Shira [facility] Body height 2022-08-10 20:38:00 149.9 [facility] Body weight 2022-08-10 20:38:00 63.231 kg [facility] BMI 2022-08-10 20:38:00 28.16 kg/m2 [facility] Systolic blood pressure 2022-07-19 13:36:00 101 mm[Hg] [facility] Diastolic blood pressure 2022-07-19 13:36:00 61 mm[Hg] [facility] Heart rate 2022-07-19 13:36:00 80 /min [facility] Body temperature 2022-07-19 13:36:00 36.67 Shira [facility] Respiratory rate 2022-07-19 13:36:00 18 /min [facility] Body height 2022-07-19 13:36:00 149.9 cm [facility] Body weight 2022-07-19 13:36:00 62.143 kg [facility] BMI 2022-07-19 13:36:00 27.67 kg/m2 [facility] Systolic blood pressure 2022-07-13 21:02:00 105 mm[Hg] [facility] Diastolic blood pressure 2022-07-13 21:02:00 61 mm[Hg] [facility] Heart rate 2022-07-13 21:02:00 85 /min [facility] Body temperature 2022-07-13 21:02:00 36.67 Shira [facility] Respiratory rate 2022-07-13 21:02:00 18 /min [facility] Body height 2022-07-13 21:02:00 149.9 cm [facility] Body weight 2022-07-13 21:02:00 63.685 kg [facility] BMI 2022-07-13 21:02:00 28.36 kg/m2 [facility] Systolic blood pressure 2022-06-15 20:06:00 106 mm[Hg] [facility] Diastolic blood pressure 2022-06-15 20:06:00 67 mm[Hg] [facility] Heart rate 2022-06-15 20:06:00 97 /min [facility] Body temperature 2022-06-15 20:06:00 37.5 Shira [facility] Respiratory rate 2022-06-15 20:06:00 18 /min [facility] Body height 2022-06-15 20:06:00 149.9 cm [facility] Body weight 2022-06-15 20:06:00 58.514 kg [facility] BMI 2022-06-15 20:06:00 26.05 kg/m2 [facility] Systolic blood pressure 2022-05-15 19:20:00 103 mm[Hg] [facility] Diastolic blood pressure 2022-05-15 19:20:00 66 mm[Hg] [facility] Heart rate 2022-05-15 19:20:00 83 /min [facility] Body temperature 2022-05-15 19:20:00 36.56 Shira [facility] Body height 2022-05-15 19:20:00 149.9 cm [facility] Body weight 2022-05-15 19:20:00 55.974 kg [facility] BMI 2022-05-15 19:20:00 24.92 kg/m2 [facility] Systolic blood pressure 2022-04-17 17:08:00 106 mm[Hg] [facility] Diastolic blood pressure 2022-04-17 17:08:00 68 mm[Hg] [facility] Heart rate 2022-04-17 17:08:00 94 /min [facility] Body temperature 2022-04-17 17:08:00 37.33 Shira [facility] Respiratory rate 2022-04-17 17:08:00 16 /min [facility] Body height 2022-04-17 17:08:00 149.9 cm [facility] Body weight 2022-04-17 17:08:00 52.345 kg [facility] BMI 2022-04-17 17:08:00 23.31 kg/m2 [facility] Systolic blood pressure 2022-03-20 19:40:00 100 mm[Hg] [facility] Diastolic blood pressure 2022-03-20 19:40:00 67 mm[Hg] [facility] Heart rate 2022-03-20 19:40:00 72 /min [facility] Body temperature 2022-03-20 19:40:00 36.44 Shira [facility] Respiratory rate 2022-03-20 19:40:00 18 /min [facility] Body height 2022-03-20 19:40:00 149.9 cm [facility] Body weight 2022-03-20 19:40:00 50.531 kg [facility] BMI 2022-03-20 19:40:00 22.50 kg/m2 [facility] Systolic blood pressure 2022-02-28 18:27:00 127 mm[Hg] [facility] Diastolic blood pressure 2022-02-28 18:27:00 73 mm[Hg] [facility] Heart rate 2022-02-28 18:27:00 78 /min [facility] Body temperature 2022-02-28 18:27:00 37 Shira [facility] Respiratory rate 2022-02-28 18:27:00 18 /min [facility] Body height 2022-02-28 18:27:00 149.9 cm [facility] Body weight 2022-02-28 18:27:00 51.982 kg [facility] BMI 2022-02-28 18:27:00 23.15 kg/m2 [facility] Oxygen saturation in Arterial blood by Pulse oximetry 2022-02-28 18:27:00 97 /min [facility] Systolic blood pressure 2022-01-04 20:16:00 100 mm[Hg] [facility] Diastolic blood pressure 2022-01-04 20:16:00 61 mm[Hg] [facility] Heart rate 2022-01-04 20:16:00 62 /min [facility] Body temperature 2022-01-04 20:16:00 36.56 Shira [facility] Respiratory rate 2022-01-04 20:16:00 16 /min [facility] Body height 2022-01-04 20:16:00 149.9 cm [facility] Body weight 2022-01-04 20:16:00 52.164 kg [facility] BMI 2022-01-04 20:16:00 23.23 kg/m2 [facility] Oxygen saturation in Arterial blood by Pulse oximetry 2022-01-04 20:16:00 96 /min [facility] Systolic blood pressure 2021-09-20 14:27:00 105 mm[Hg] [facility] Diastolic blood pressure 2021-09-20 14:27:00 64 mm[Hg] [facility] Heart rate 2021-09-20 14:27:00 83 /min [facility] Body temperature 2021-09-20 14:27:00 36.72 Shira [facility] Body height 2021-09-20 14:27:00 149.9 cm [facility] Body weight 2021-09-20 14:27:00 49.261 kg [facility] BMI 2021-09-20 14:27:00 21.93 kg/m2 [facility] Body mass index (BMI) [Percentile] Per age and sex 2021-09-20 14:27:00 54.96 % [facility] Procedures Procedure Date / Time Performed Performing Clinician Source HIV 1/2 AG-AB WITH REFLEX 2024-02-15 17:48:00 Rae Magallon [facility] SYPHILIS IGG/IGM 2024-02-15 17:48:00 [facility] 2023-04-19 21:48:00 Samantha Neff [facility] FLU VACC ([id number]), 6 MO-64 YRS, .5ML, IM, QUAD (FLUCELVAX) 2023-04-19 21:24:36 Samantha Neff [facility] ASSIGNMENT OF BENEFITS 2023-04-19 20:48:26 Docto r Unassigned, [facility] DOCUMENTATION SPECIALIST CLINIC ULTRASOUND 2023-01-10 05:01:00 Doc tor Unassigned, [facility] DISCLOSURE AND CONSENT MEDICAL & SURGICAL PROCEDURES - FEMALM 2023-01-10 05:01:00 Doctor Unassigned, [facility] POCT TEST 2023-01-10 00:00:00 Samantha Neff [facility] CBC WITH DIFF 2022-10-25 06:03:00 Samantha Neff [facility] CENTRAL NEURAXIAL BLOCK 2022 00:50:00 Dex High [facility] CBC WITH DIFF 2022-10-23 15:44:00 Samantha Neff [facility] HEPATITIS B SURFACE ANTIGEN 2022-10-23 15:44:00 Samantha Neff [facility] HB ABO GROUPING 2022-10-23 15:44:00 Samantha Neff [facility] RHO (D) IMMUNE GLOBULIN 2022-10-23 15:44:00 Samantha Neff [facility] ADC OR HECTOR ONLY - RPR 2022-10-23 15:44:00 Rafael Neff [facility] HIV 1/2 AG-AB WITH REFLEX 2022-10-23 15:44:00 Rafael Neff [facility] ASSIGNMENT OF BENEFITS 2022-10-22 17:59:48 Docto r Unassigned, [facility] CONSENT/REFUSAL FOR DIAGNOSIS AND TREATMENT 2022-10-22 17:57:55 Doctor Unassigned, [facility] POCT URINALYSIS W/O SPECIFIC GRAVITY 2022-10-16 00:00:00 Shea Wilder [facility] >14 WEEKS US LIMITED 2022-09-29 09:59:44 Samantha Neff [facility] DSU PRE-OP 2022-09-28 05:01:00 Doctor Unass igned, [facility] POCT URINALYSIS W/O SPECIFIC GRAVITY 2022-09-28 00:00:00 Samantha Neff [facility] POCT URINALYSIS W/O SPECIFIC GRAVITY 2022-09-15 00:00:00 Chel Travis [facility] POCT URINALYSIS W/O SPECIFIC GRAVITY 2022-08-24 00:00:00 Samantha Neff [facility] TDAP VACCINE, >11 YRS, IM 2022-08-10 20:48:42 Rafael Neff [facility] POCT URINALYSIS W/O SPECIFIC GRAVITY 2022-08-10 00:00:00 Samantha Neff [facility] POCT URINALYSIS W/O SPECIFIC GRAVITY 2022-07-19 00:00:00 Shea Wilder [facility] POCT URINALYSIS W/O SPECIFIC GRAVITY 2022-07-13 21:02:00 Samantha Neff [facility] POCT URINALYSIS W/O SPECIFIC GRAVITY 2022-06-15 20:07:00 Shea Wilder [facility] PATIENT FINANCIAL POLICY 2022-06-15 19:51:19 Doctor Unassigned, [facility] SECOND AND THIRD TRIMESTER ULTRASOUND 2022-06-02 20:48:00 Shea Wilder [facility] POCT URINALYSIS W/O SPECIFIC GRAVITY 2022-05-15 00:00:00 AishwaryaSamantha [facility] POCT URINALYSIS W/O SPECIFIC GRAVITY 2022-04-17 17:11:00 Shea Wilder [facility] SCANNED LAB RESULTS 2022-04-03 06:01:00 Doctor Vinicio petty, [facility] INSURANCE CORRESPONDENCE 2022-03-21 06:01:00 Doc tor Unassigned, [facility] [facility] <14 WEEKS US LIMITED 2022-03-20 20:20:21 AishwaryaSamantha Betito [facility] FLU VACC (), 6 MO-64 YRS, .5ML, IM, QUAD (FLUCELVAX) 2022-03-20 19:58:21 Samantha Neff [facility] POCT TEST 2022-03-20 00:00:00 Aishwarya Samantha [facility] POCT URINALYSIS W/O SPECIFIC GRAVITY 2022-03-20 00:00:00 Samantha Neff [facility] ASSIGNMENT OF BENEFITS 2022-02-28 18:11:38 Docto r Unassigned, O'Neill [facility] REFERRAL- REQUEST/RESPONSE 2022-02-01 05:01:00 Doctor Unassigned, O[facility]Neill [facility] Encounters Start Date/Time End Date/Time Encounter Type Admission Type Attending [facility] Facility Care Department Encounter ID Source 2024-02-15 00:00:00 2024-02-15 12:50:06 Letter (Out) Jovita Magallon [facility] DOCUMENTATION SPECIALIST [facility] MATERNAL & CHILD [facility] 1.2.840.114 350.1.13.10 4.2.7.2.686 [id number] 107 [id number] [facility] 2024-02-15 12:45:00 2024-02-15 12:48:47 Outpatient R JOVITA MAGALLON [facility] [id number] [facility] 2024-02-15 12:45:00 2024-02-15 12:48:47 Rand Sewer Visit Lab, Jovita Arenas Lab, Yennyteresa [facility] DOCUMENTATION SPECIALIST [facility] 1.2.840.114 350.1.13.10 4.2.7.2.686 [id number] 107 [id number] [facility] 2024-02-15 12:00:00 2024-02-15 12:00:00 Outpatient R [facility] [id number] [facility] 2024-02-06 00:00:00 2024-02-06 15:29:40 Refill Jovita Magallon [facility] DOCUMENTATION SPECIALIST [facility] & CHILD [facility] 1.2.840.114 350.1.13.10 4.2.7.2.686 [id number] 107 [id number] [facility] 2024-01-21 00:00:00 2024-01-21 10:23:22 Case Management NaunSumeetJovita [facility] DOCUMENTATION SPECIALIST [facility] CHILD [facility] 1.2.840.114 350.1.13.10 4.2.7.2.686 [id number] 107 [id number] [facility] 2024-01-18 00:00:00 2024-01-18 13:44:32 Letter (Out) NaunJovtia [facility] DOCUMENTATION SPECIALIST [facility] & [facility]ILD [facility] 1.2.840.114 350.1.13.10 4.2.7.2.686 [id number] 107 [id number] [facility] 2024-01-18 13:15:00 2024-01-18 13:43:29 Outpatient R NAUNSUMEETJOVITA [facility] [id number] [facility] 2024-01-18 13:15:00 2024-01-18 13:43:29 Office Visit NaunSumeetJovita [facility] DOCUMENTATION SPECIALIST [facility] CHILD [facility] 1.2.840.114 350.1.13.10 4.2.7.2.686 [id number] 107 [id number] [facility] 2023-11-15 00:00:00 2023-11-15 11:42:47 Case Management Taylor Flor [facility] DOCUMENTATION SPECIALIST [facility] 1..840.114 350.1.13.10 4.2.7.2.686 [id number] 107 [id number] [facility] 2023-11-14 14:30:00 2023-11-14 15:23:06 Outpatient R NAUNJOVITA [facility] [id number] [facility] 2023-11-14 14:30:00 2023-11-14 15:23:06 Office Visit Jovita Magallon [facility] DOCUMENTATION SPECIALIST [facility] MATERNAL [facility] 1..840.114 350.1.13.10 4.2.7.2.686 [id number] 107 [id number] [facility] 2023-07-28 13:40:00 2023-07-28 14:44:00 Emergency X LISSALORISHAYY [facility] ERT [id number] [facility] 2023-07-28 13:40:00 2023-07-28 14:44:00 Emergency [facility] 1..840.114 350.1.13.10 4.2.7.2.686 [id number] [facility] 2023-06-14 15:00:00 2023-06-14 15:00:00 Outpatient R SAMANTHA NEFF [facility] [id number] [facility] 2023-06-01 09:30:00 2023-06-01 09:30:00 Outpatient R LARISSA RDORIGUEZ [facility] [id number] [facility] 2023-04-19 16:00:00 2023-04-19 16:20:05 Rand Sewer Visit 2, Adc Lab Samantha Neff [facility] 1.2.840.114 350.1.13.10 4.2.7.2.686 [id number] 353 [id number] [facility] 2023-04-19 15:00:00 2023-04-19 15:33:08 Outpatient R SAMANTHA NEFF [facility] [id number] [facility] 2023-04-19 15:00:00 2023-04-19 15:33:08 Office Visit Samantha Neff [facility] BUILDING 1.840.114 350.1.13.10 4.2.7.2.686 [id number] 134 [id number] [facility] 2023-04-19 00:00:00 2023-04-19 00:00:00 Orders Only Doctor Unassigned, O'Neill [facility] 1.84.114 350.1.13.10 4.2.7.2.686 [id number] [facility] 2023-02-21 14:00:00 2023-02-21 14:00:00 Outpatient R SAMANTHA NEFF [facility] [id number] [facility] 2023-01-17 13:30:00 2023-01-17 13:30:00 Outpatient R [facility] [id number] [facility] 2023-01-10 10:00:00 2023-01-10 10:57:03 Outpatient R SAMANTHA NEFF [facility] [id number] [facility] 2023-01-10 10:00:00 2023-01-10 10:57:03 Office Visit Samantha Neff [facility] BUILDING 1.840.114 350.1.13.10 4.2.7.2.686 [id number] 134 [id number] [facility] 2023-01-10 00:00:00 2023-01-10 00:00:00 Orders Only Doctor Unassigned, O'Neill [facility] 1.84.114 350.1.13.10 4.2.7.2.686 [id number] [facility] 2023-01-05 00:00:00 2023-01-05 00:00:00 Telephone Samantha Neff [facility] BUILDING 1.840.114 350.1.13.10 4.2.7.2.686 [id number] 134 [id number] [facility] 2022-12-11 15:00:00 2022-12-11 15:00:00 Outpatient R SAMANTHA NEFF [facility] [id number] [facility] 2022-12-10 00:00:00 2022-12-10 00:00:00 [facility] BU[facility] 1.2.840.114 350.1.13.10 4.2.7.2.686 [id number] 134 [id number] [facility] 2022-11-20 16:15:00 2022-11-20 16:55:08 Outpatient R SAMANTHA NEFF [facility] [id number] [facility] 2022-11-20 16:15:00 2022-11-20 16:55:08 [facility] 1.2.840.114 350.1.13.10 4.2.7.2.686 [id number] 134 [id number] [facility] 2022-10-23 10:00:00 2022-10-25 09:30:00 Inpatient P SAMANTHA NEFF [facility] JOHN [id number] [facility] 2022-10-23 10:00:00 2022-10-25 09:30:00 Hospital Encounter Samantha Neff [facility] 1.2840.114 350.1.13.10 4.2.7.2.686 [id number] 083 [id number] [facility] 2022 20:01:01 2022 20:01:01 Anesthesia Event Luigi Doherty [facility] 1.2.840.114 350.1.13.10 4.2.7.2.686 [id number] [id number] [facility] 2022-10-23 19:38:00 2022 06:32:00 Anesthesia Event Dex Sue [facility] 1.2840.114 350.1.13.10 4.2.7.2.686 [id number] [id number] [facility] 2022-10-16 15:15:00 2022-10-16 15:30:00 Routine Visit Shea Wilder [facility] BUILDING 1.2.840.114 350.1.13.10 4.2.7.2.686 [id number] 134 [id number] [facility] 2022-10-16 15:15:00 2022-10-16 15:15:00 Outpatient R MEÑO [facility] [id number] [facility] 2022-10-04 13:00:00 2022-10-04 13:15:00 Rand Sewer Visit 2, Adc Lab Samantha Neff [facility] BUILDING 1.2.840.114 350.1.13.10 4.2.7.2.686 [id number] [facility] 2022-10-04 13:00:00 2022-10-04 13:00:[address] [facility] [id number] [facility] 2022-09-29 15:00:00 2022-09-29 15:00:00 [id number] 2022-09-28 16:00:00 2022-09-28 16:26:[address] [facility] [id number] [facility] 2022-09-28 16:00:00 2022-09-28 16:26:36 Routine Visit Samantha Neff [facility] BUILDING 1.2.840.114 350.1.13.10 4.2.7.2.686 [id number] 134 [id number] [facility] 2022-09-28 00:00:00 2022-09-28 00:00:00 Orders Only Doctor Unassigned, O'Neill [facility] 1.114 350.1.13.10 4.2.7.2.686 [id number] [facility] 2022-09-15 15:00:00 2022-09-15 15:21:35 Outpatient R CHEL MANCERA CHEL [facility] [id number] [facility] 2022-09-15 15:00:00 2022-09-15 15:21:35 Routine Visit Yusra Mancerasol [facility] 1.114 350.1.13.10 4.2.7.2.686 [id number] 134 [id number] [facility] 2022-09-08 08:45:00 2022-09-08 08:45:00 Outpatient R SHEA WILDER [facility] [id number] [facility] 2022-08-31 15:30:00 2022-08-31 16:00:00 Rand Sewer Visit Ultrasound, Swathi Fernandez [facility] DOCUMENTATION SPECIALIST [facility] MATERNAL & CHILD [facility] 1.114 350.1.13.10 4.2.7.2.686 [id number] [facility] 2022-08-31 15:30:00 2022-08-31 15:30:00 Outpatient P SWATHI MENG [facility] [id number] [facility] 2022-08-24 16:00:00 2022-08-24 16:15:00 [facility] 1.114 350.1.13.10 4.2.7.2.686 [id number] 134 [id number] [facility] 2022-08-24 16:00:00 2022-08-24 16:00:00 Outpatient R SAMANTHA NEFF [facility] [id number] [facility] 2022-08-10 15:45:00 2022-08-10 15:53:34 Outpatient R SAMANTHA NEFF [facility] [id number] [facility] 2022-08-10 15:45:00 2022-08-10 15:53:34 Routine Visit Samantha Neff [facility] BUILDING 1.2.840.114 350.1.13.10 4.2.7.2.686 [id number] 134 [id number] [facility] 2022-07-21 00:00:00 2022-07-21 00:00:00 Telephone Samantha Neff [facility] BUILDING 1.2.840.114 350.1.13.10 4.2.7.2.686 [id number] 134 [id number] [facility] 2022-07-20 00:00:00 2022-07-20 00:00:00 Case Management Shea Wilder [facility] 1.2.840.114 350.1.13.10 4.2.7.2.686 [id number] 370 [id number] [facility] 2022-07-19 15:00:00 2022-07-19 15:15:00 Rand Sewer Visit 2, Adc Lab Meño [facility] BUILDING 1.2.840.114 350.1.13.10 4.2.7.2.686 [id number] 353 [id number] [facility] 2022-07-19 09:00:00 2022-07-19 09:10:42 Outpatient R MEOÑ SHEA [facility] [id number] [facility] 2022-07-19 09:00:00 2022-07-19 09:10:42 Routine Visit Shea Wilder [facility] 1.2.840.114 350.1.13.10 4.2.7.2.686 [id number] 134 [id number] [facility] 2022-07-19 00:00:00 2022-07-19 00:00:00 Case Management Samantha Neff [facility] 1.2.840.114 350.1.13.10 4.2.7.2.686 [id number] 134 [id number] [facility] 2022-07-17 00:00:00 2022-07-17 00:00:00 Telephone Samantha Neff [facility] 1.2.840.114 350.1.13.10 4.2.7.2.686 [id number] 134 [id number] [facility] 2022-07-13 15:45:00 2022-07-13 16:14:37 Outpatient R SAMANTHA NEFF [facility] [id number] [facility] 2022-07-13 15:45:00 2022-07-13 16:14:37 Routine Visit Samantha Neff [facility] 1.2.840.114 350.1.13.10 4.2.7.2.686 [id number] 134 [id number] [facility] 2022-07-07 14:30:00 2022-07-07 15:15:00 Rand Sewer Visit Ultrasound, Yoan-Mk Haynes [facility] DOCUMENTATION SPECIALIST [facility] 1.2.840.114 350.1.13.10 4.2.7.2.686 [id number] [facility] 2022-07-07 14:30:00 2022-07-07 14:30:00 Outpatient P MK GALAVIZ COREY [facility] [id number] [facility] 2022-06-15 14:15:00 2022-06-15 14:30:00 Routine Visit Shea Wilder [facility] 1.2.840.114 350.1.13.10 4.2.7.2.686 [id number] 134 [id number] [facility] 2022-06-15 14:15:00 2022-06-15 14:15:00 Outpatient R LOIS WILDERCY [facility] [id number] [facility] 2022-06-15 00:00:00 2022-06-15 00:00:00 Orders Only Doctor Unassigned, O'Neill [facility] 1.2.840.114 350.1.13.10 4.2.7.2.686 [id number] [id number] [facility] 2022-06-08 00:00:00 2022-06-08 00:00:00 Telephone Samantha Neff [facility] 1.2.840.114 350.1.13.10 4.2.7.2.686 [id number] 134 [id number] [facility] 2022-06-07 00:00:00 2022-06-07 00:00:00 Telephone Samantha Neff [facility] 1.2.840.114 350.1.13.10 4.2.7.2.686 [id number] 134 [id number] [facility] 2022-06-02 14:00:00 2022-06-02 15:02:06 Rand Sewer Visit 1, [facility] Room Cherelle Garrison [facility] DOCUMENTATION SPECIALIST [facility] R [facility] 1.2.840.114 350.1.13.10 4.2.7.2.686 [id number] 369 [id number] [facility] 2022-06-02 14:00:00 2022-06-02 14:00:00 Outpatient CHERELLE JETER SHANNON [facility] [id number] [facility] 2022-05-23 13:00:00 2022-05-23 13:15:00 Rand Sewer Visit 2, Adc Lab Samantha Neff [facility] 1.2.840.114 350.1.13.10 4.2.7.2.686 [id number] 353 [id number] [facility] 2022-05-23 13:00:00 2022-05-23 13:00:[address] [facility] [id number] [facility] 2022-05-15 13:00:00 2022-05-15 13:36:[address] [facility] [id number] [facility] 2022-05-15 13:00:00 2022-05-15 13:36:27 Routine Visit Samantha Neff [facility] 1.2.840.114 350.1.13.10 4.2.7.2.686 [id number] 134 [id number] [facility] 2022-04-17 11:40:00 2022-04-17 11:40:00 Outpatient R UNKNOWN, [facility] [id number] [facility] 2022-04-17 11:00:00 2022-04-17 11:15:00 Routine Visit Meño Shea [facility] 1.2.840.114 350.1.13.10 4.2.7.2.686 [id number] 134 [id number] [facility] 2022-04-13 00:00:00 2022-04-13 00:00:00 Telephone Nurse, [facility] BUILD[facility] 1.2.840.114 350.1.13.10 4.2.7.2.686 [id number] 134 [id number] [facility] 2022-04-04 00:00:00 2022-04-04 00:00:00 Telephone Shea Wilder [facility] BUILDING 1.2.840.114 350.1.13.10 4.2.7.2.686 [id number] 134 [id number] [facility] 2022-04-03 11:30:00 2022-04-03 12:04:17 Rand Sewer Visit 2, Adc Lab Samantha Neff [facility] BUILDING 1.2840.114 350.1.13.10 4.2.7.2.686 [id number] 353 [id number] [facility] 2022-04-03 11:30:00 2022-04-03 11:30:00 Outpatient R AISHWARYA SAMANTHA [facility] [id number] [facility] 2022-04-03 00:00:00 2022-04-03 00:00:00 Orders Only Doctor Unassigned, O'Neill [facility] 1.2840.114 350.1.13.10 4.2.7.2.686 [id number] [id number] [facility] 2022-03-21 00:00:00 2022-03-21 00:00:00 Orders Only Doctor Unassigned, O'Neill [facility] 1.2840.114 350.1.13.10 4.2.7.2.686 [id number] [id number] [facility] 2022-03-21 00:00:00 2022-03-21 00:00:00 Telephone Adwoa Dixon [facility] 1.2840.114 350.1.13.10 4.2.7.2.686 [id number] 201 [id number] [facility] 2022-03-20 14:00:00 2022-03-20 14:25:00 Outpatient R SAMANTHA NEFF [facility] [id number] [facility] 2022-03-20 14:00:00 2022-03-20 14:25:00 Initial Visit Samantha Neff [facility] 1.2.840.114 350.1.13.10 4.2.7.2.686 [id number] 134 [id number] [facility] 2022-03-07 00:00:00 2022-03-07 00:00:00 Telephone Adwoa Dixon [facility] 1.2840.114 350.1.13.10 4.2.7.2.686 [id number] 201 [id number] [facility] 2022-02-28 13:00:00 2022-02-28 13:00:00 Office Visit Adwoa Dixon Linda G [facility] SPECIALTY C[facility] 1.20.114 350.1.13.10 4.2.7.2.686 [id number] 201 [id number] [facility] 2022-02-28 13:00:00 2022-02-28 12:47:15 Outpatient SHERRY DONG [facility] [id number] [facility] 2022-02-28 00:00:00 2022-02-28 00:00:00 Orders Only Doctor Unassigned, O'Neill [facility] 1.0.114 350.1.13.10 4.2.7.2.686 [id number] [id number] [facility] 2022-02-01 00:00:00 2022-02-01 00:00:00 Orders Only Doctor Unassigned, O'Neill [facility] 1.0.114 350.1.13.10 4.2.7.2.686 [id number] [facility] 2022-01-06 00:00:00 2022-01-06 00:00:00 Case Management Larissa Rodriguez [facility] 1.2.114 350.1.13.10 4.2.7.2.686 [id number] 134 [id number] [facility] 2022-01-04 15:30:00 2022-01-04 15:41:39 Outpatient R ADUM, LARISSA [facility] [id number] [facility] 2022-01-04 15:30:00 2022-01-04 15:41:39 Office Visit Adum, Larissa Trejo [facility] 1.2.840.114 350.1.13.10 4.2.7.2.686 [id number] 134 [id number] [facility] 2021-09-21 00:00:00 2021-09-21 00:00:00 Case Management Adum, Larissa Trejo [facility] BUILDING 1.2.840.114 350.1.13.10 4.2.7.2.686 [id number] 134 [id number] [facility] 2021-09-20 10:00:00 2021-09-20 10:15:00 Rand Sewer Visit 2, Adc Lab Adum, Larissa Trejo [facility] BUILDING 1.2.840.114 350.1.13.10 4.2.7.2.686 [id number] 353 [id number] [facility] 2021-09-20 10:00:00 2021-09-20 10:00:00 Outpatient R ADUM, LARISSA [facility] [id number] [facility] 2021-09-20 09:30:00 2021-09-20 09:45:08 Office Visit Adum, Larissa Trejo [facility] BUILD[facility] 1.2.840.114 350.1.13.10 4.2.7.2.686 [id number] 134 [id number] [facility] 2021-09-20 09:30:00 2021-09-20 09:45:08 Outpatient R ADUM, [facility] [id number] [facility] 2021-09-20 09:30:00 2021-09-20 09:45:08 Outpatient R ADUM [facility] [id number] [facility] 2021-08-05 09:30:00 2021-08-05 09:30:00 Outpatient R ADUM, LARISSA [facility] [id number] [facility] 2021-01-18 10:00:00 2021-01-18 10:00:00 Outpatient R ADUM, LARISSA [facility] [id number] [facility] 2021-01-10 00:00:00 2021-01-10 00:00:00 Telephone Adum, Larissa Trejo [facility] 1.2.840.114 350.1.13.10 4.2.7.2.686 [id number] 134 [id number] [facility] 2021-01-07 00:00:00 2021-01-07 00:00:00 Case Management Adum, Larissa Trejo [facility] 1.2.840.114 350.1.13.10 4.2.7.2.686 [id number] 134 [id number] [facility] 2021-01-06 13:49:22 2021-01-06 14:04:22 Rand Sewer Visit 2, Adc Lab Adum, Larissa Trejo [facility] 1.2.840.114 350.1.13.10 4.2.7.2.686 [id number] 353 [id number] [facility] 2021-01-06 12:51:42 2021-01-06 13:43:46 Initial Visit Adum, Larissa Trejo [facility] 1.2.840.114 350.1.13.10 4.2.7.2.686 [id number] 134 [id number] [facility] 2021-01-06 13:30:00 2021-01-06 13:30:00 Outpatient R ADUM, LARISSA [facility] [id number] [facility] 2021-01-06 00:00:00 2021-01-06 00:00:00 Orders Only Doctor Unassigned, O'Neill [facility] 1.2840.114 350.1.13.10 4.2.7.2.686 [id number] [facility] 2021-01-06 00:00:00 2021-01-06 00:00:00 Letter (Out) AdLarissa ritchie [facility] Building 1.2840.114 350.1.13.10 4.2.7.2.686 [id number] 134 [id number] [facility] 2020-03-17 10:20:34 2020-03-17 16:17:05 Telemedici ne Visit AdLarissa ritchie [facility] Building 1.284.114 350.1.13.10 4.2.7.2.686 [id number] 134 [id number] [facility] 2020-03-17 16:00:00 2020-03-17 16:00:00 Outpatient R TAELEOBARDO [facility] [id number] [facility] 2020-03-16 13:00:00 2020-03-16 13:00:00 Outpatient R WILLIAMS [facility] [id number] [facility] 2020-03-16 00:00:00 2020-03-16 00:00:00 Letter (Out) Doctor Unassigned, [facility] 1.2840.114 350.1.13.10 4.2.7.2.686 [id number] [facility] 2019-12-12 15:30:02 2019-12-12 16:00:02 Office Visit AdLarissa ritchie [facility] 1.284.114 350.1.13.10 4.2.7.2.686 [id number] [facility] 2019-12-12 16:00:00 2019-12-12 16:00:00 Outpatient R TAELEOBARDO [facility] [id number] [facility] 2019-12-12 15:30:00 2019-12-12 15:30:00 Outpatient R LARISSA RODRIGUEZ [facility] [id number] [facility] 2019-12-12 00:00:00 2019-12-12 00:00:00 Orders Only Doctor Unassigned, [facility] 1.114 350.1.13.10 4.2.7.2.686 [id number] [facility] 2019-12-03 00:00:00 2019-12-03 00:00:00 Letter (Out) [facility] 1.114 350.1.13.10 4.2.7.2.686 [id number] [facility] 2019-12-03 00:00:00 2019-12-03 00:00:00 Letter (Out) [facility] 1.114 350.1.13.10 4.2.7.2.686 [id number] [facility] 2019-11-05 16:00:00 2019-11-05 16:00:00 Outpatient R MANISHA VACA [facility] [id number] [facility] 2019-11-04 15:57:07 2019-11-04 16:17:07 Laboratory Only Lab, Adc Fam Pob Shabbir Alanis [facility] Office Building One .114 350.1.13.10 4.2.7.2.686 [id number] [facility] 2019-11-04 16:00:00 2019-11-04 16:00:00 Outpatient Siri ALANIS [facility] [id number] [facility] 2019-10-28 00:00:00 2019-10-28 00:00:00 Telephone Roxane Desai [facility] Office Building One .114 350.1.13.10 4.2.7.2.686 [id number] [facility] 2019-10-25 09:10:45 2019-10-25 09:30:45 Laboratory Only Lab, [facility] Pob [facility] Building One 1.2.840.114 350.1.13.10 4.2.7.2.686 [id number] [facility] 2019-10-25 09:00:00 2019-10-25 09:00:00 Outpatient R MANISHA VACA [facility] [id number] [facility] Results Test Description Test Time Test Comments Results Result Co [id number] 15:42:00* Test Item Value Reference Range Interpretation Comme nts POCT PREG (test code = 1605) Negative On board controls acceptable with C Line (test code = 3574) Yes POCT PREG LOT # (test code = 3575) POCT PREG TEST DATE ( test code = 3576) [facility] - [id number] 12:36:26* Test Item Value Reference Range Interpretation Comme nts RPR (Qualitative) (test code = 49517-2) Nonreactive Nonreactive Lab Interpretation (test cod e = 66335-9) Normal [facility] IMMUNE [id number] 11:18:10* Test Item Value Reference Range Interpretation Comme nts RHIG CANDIDATE? (test code = 5188) No- see comment Patient is not a candidate for RhIg- Patient is Rh Positive.Performed at [place] [facility] Laboratory Services - [facility] Blood [id number] [place] [id number] Free: [phone] No. [id number] [facility] [id number] 20:50:33 * Test Item Value Reference Range Interpretation Comme nts HBsAg Semi-Quantitative (eduardo t code = 5195-3) 0.03 Negative [facility]-AB WITH [id number] 18:01:21* Test Item Value Reference Range Interpretation Comme nts HIV Semi-quantitative (test code = 80320-1) 0.08 Negative REN (test code = REN) Non-reactive for HIV-1 antigen and HIV-1/HIV-2 antibodies. ?No laboratory evidence of HIV infection. ?Repeat in 2-4 weeks if acute HIV infection is suspected. [facility] with [id number] 16:14:10* Test Item Value Reference Range Interpretation Comme nts WBC (test code = 6690-2) 7.59 See_Comment [Automated messa ge] The system which generated this result transmitted reference range: 4.30 - 11.10 10*3/?L. The reference range was not used to interpret this result as normal/abnormal. RBC (test code = 789-8) 3.27 See_Comment L [Automated messa ge] The system which generated this result transmitted reference range: 3.93 - 5.25 10*6/?L. The reference range was not used to interpret this result as normal/abnormal. HGB (test code = 718-7) 9.5 g/dL 11.6-15.0 L HCT (test code = 4544-3) 28.4 % 35.7-45.2 L MCV (test code = 787-2) 86.9 fL 80.6-95.5 MCH (test code = 785-6) 29.1 pg 25.9-32.8 MCHC (test code = 786-4) 33.5 g/dL 31.6-35.1 RDW-SD (test code = 58734-0) 48.1 fL 39.0-49.9 RDW-CV (test code = 788-0) 15.2 % 12.0-15.5 PLT (test code = 777-3) 346 See_Comment [Automated messa ge] The system which generated this result transmitted reference range: 166 - 358 10*3/?L. The reference range was not used to interpret this result as normal/abnormal. MPV (test code = 69478-9) 9.8 fL 9.5-12.9 NRBC/100 WBC (test code = 2194968991) 0.0 See_Comment [Automated me ssage] The system which generated this result transmitted reference range: 0.0 - 10.0 /100 WBCs. The reference range was not used to interpret this result as normal/abnormal. NRBC x10^3 (test code = 7914834273) See_Comment [Automated messa ge] The system which generated this result transmitted reference range: 10*3/?L. The reference range was not used to interpret this result as normal/abnormal. GRAN MAT (NEUT) % (test code = 770-8) 61.9 % IMM GRAN % (test code = 3175955814) 0.40 % LYMPH % (test code = 736-9) 28.5 % MONO % (test code = 5905-5) 8.7 % EOS % (test code = 713-8) 0.4 % BASO % (test code = 706-2) 0.1 % GRAN MAT x10^3(ANC) (test code = 4068043724) 4.70 10*3/uL 1.88-7.09 IMM GRAN x10^3 (test code = 0112779409) 0.03 10*3/uL 0.00-0.06 LYMPH x10^3 (test code = 731-0) 2.16 10*3/uL 1.32-3.29 MONO x10^3 (test code = 742-7) 0.66 10*3/uL 0.33-0.92 EOS x10^3 (test code = 711-2) 0.03 10*3/uL 0.03-0.39 BASO x10^3 (test code = 704-7) 0.01-0.07 Lab Interpretation (test code = 68334-5) Abnormal [facility] - ONCE [id number] 16:09:00 * Test Item Value Reference Range Interpretation Comme nts ABO & RH (test code = 20) O Positive IAT (test code = 1185) Negative [facility]/O SPECIFIC [id number] 20:01:00* Test Item Value Reference Range Interpretation Comme nts POCT PH U (test code = 3254) n/a 5-8 POCT U LEUK EST (test code = 3263) n/a Negative - N egative POCT U NIT (test code = 3262) n/a Negative - Negati ve POCT U PROT (test code = 3259) neg Negative - Negat sondra POCT U GLU (test code = 3256) neg Negative - Negati ve POCT U KETONE (test code = 3258) n/a Negative - Neg ative POCT U BLD (test code = 3257) n/a Negative - Negati ve [facility] URINALYSIS W/O SPECIFIC [id number] 20:51:00* Test Item Value Reference Range Interpretation Comme nts POCT PH U (test code = 3254) n/a 5-8 POCT U LEUK EST (test code = 3263) n/a Negative - Negative POCT U NIT (test code = 3262) n/a Negative - Negati ve POCT U PROT (test code = 3259) negative Negative - Negat sondra POCT U GLU (test code = 3256) negative Negative - Negati ve POCT U KETONE (test code = 3258) n/a Negative - Neg ative POCT U BLD (test code = 3257) n/a Negative - Negati ve [facility] URINALYSIS W/O SPECIFIC [id number] 20:14:00* Test Item Value Reference Range Interpretation Comme nts POCT PH U (test code = 3254) N/A 5-8 POCT U LEUK EST (test code = 3263) N/A Negative - Negative POCT U NIT (test code = 3262) N/A Negative - Negati ve POCT U PROT (test code = 3259) Negative Negative - Negat sondra POCT U GLU (test code = 3256) Negative Negative - Negati ve POCT U KETONE (test code = 3258) N/A Negative - Neg ative POCT U BLD (test code = 3257) N/A Negative - Negati ve [facility] URINALYSIS W/O SPECIFIC [id number] 21:02:00* Test Item Value Reference Range Interpretation Comme nts POCT PH U (test code = 3254) n/a 5-8 POCT U LEUK EST (test code = 3263) n/a Negative - Negative POCT U NIT (test code = 3262) n/a Negative - Negati ve POCT U PROT (test code = 3259) negative Negative - Negat sondra POCT U GLU (test code = 3256) negative Negative - Negati ve POCT U KETONE (test code = 3258) n/a Negative - Neg ative POCT U BLD (test code = 3257) n/a Negative - Negati ve [facility] URINALYSIS W/O SPECIFIC [id number] 20:35:00* Test Item Value Reference Range Interpretation Comme nts POCT PH U (test code = 3254) n/a 5-8 POCT U LEUK EST (test code = 3263) n/a Negative - Negative POCT U NIT (test code = 3262) n/a Negative - Negati ve POCT U PROT (test code = 3259) Negative Negative - Negat sondra POCT U GLU (test code = 3256) Normal Negative - Negati ve POCT U KETONE (test code = 3258) n/a Negative - Neg ative POCT U BLD (test code = 3257) n/a Negative - Negati ve [facility] URINALYSIS W/O SPECIFIC [id number] 14:18:00* Test Item Value Reference Range Interpretation Comme nts POCT PH U (test code = 3254) 5 mg/dl 5-8 POCT U LEUK EST (test code = 3263) neg Negative - Negative POCT U NIT (test code = 3262) neg Negative - Negati ve POCT U PROT (test code = 3259) neg Negative - Negat sondra POCT U GLU (test code = 3256) neg Negative - Negati ve POCT U KETONE (test code = 3258) neg Negative - Neg ative POCT U BLD (test code = 3257) neg Negative - Negati ve [facility] URINALYSIS W/O SPECIFIC [id number] 21:03:00* Test Item Value Reference Range Interpretation Comme nts POCT PH U (test code = 3254) n/a 5-8 POCT U LEUK EST (test code = 3263) n/a Negative - Negative POCT U NIT (test code = 3262) n/a Negative - Negati ve POCT U PROT (test code = 3259) negative Negative - Negat sondra POCT U GLU (test code = 3256) normal Negative - Negati ve POCT U KETONE (test code = 3258) n/a Negative - Neg ative POCT U BLD (test code = 3257) n/a Negative - Negati ve [facility] URINALYSIS W/O SPECIFIC [id number] 20:07:00* Test Item Value Reference Range Interpretation Comme nts POCT PH U (test code = 3254) n/a 5-8 POCT U LEUK EST (test code = 3263) n/a Negative - Negative POCT U NIT (test code = 3262) n/a Negative - Negati ve POCT U PROT (test code = 3259) negative Negative - Negat sondra POCT U GLU (test code = 3256) negative Negative - Negati ve POCT U KETONE (test code = 3258) n/a Negative - Neg ative POCT U BLD (test code = 3257) n/a Negative - Negati ve [facility] URINALYSIS W/O SPECIFIC [id number] 19:21:00* Test Item Value Reference Range Interpretation Comme nts POCT PH U (test code = 3254) 8 mg/dl 5-8 POCT U LEUK EST (test code = 3263) Negative Negative - Negative POCT U NIT (test code = 3262) Negative Negative - Negati ve POCT U PROT (test code = 3259) Negative Negative - Negat sondra POCT U GLU (test code = 3256) Normal Negative - Negati ve POCT U KETONE (test code = 3258) Negative Negative - Neg ative POCT U BLD (test code = 3257) Negative Negative - Negati ve [facility] URINALYSIS W/O SPECIFIC [id number] 17:12:00* Test Item Value Reference Range Interpretation Comme nts POCT PH U (test code = 3254) n/a 5-8 POCT U LEUK EST (test code = 3263) n/a Negative - Negative POCT U NIT (test code = 3262) n/a Negative - Negati ve POCT U PROT (test code = 3259) trace Negative - Negat sondra POCT U GLU (test code = 3256) negative Negative - Negati ve POCT U KETONE (test code = 3258) n/a Negative - Neg ative POCT U BLD (test code = 3257) n/a Negative - Negati ve [facility] URINALYSIS W/O SPECIFIC [id number] 17:12:00* Test Item Value Reference Range Interpretation Comme nts POCT PH U (test code = 3254) n/a 5-8 POCT U LEUK EST (test code = 3263) n/a Negative - Negative POCT U NIT (test code = 3262) n/a Negative - Negati ve POCT U PROT (test code = 3259) trace Negative - Negat sondra POCT U GLU (test code = 3256) negative Negative - Negati ve POCT U KETONE (test code = 3258) n/a Negative - Neg ative POCT U BLD (test code = 3257) n/a Negative - Negati ve [facility] URINALYSIS W/O SPECIFIC [id number] 19:44:00* Test Item Value Reference Range Interpretation Comme nts POCT PH U (test code = 3254) n/a 5-8 POCT U LEUK EST (test code = 3263) n/a Negative - Negative POCT U NIT (test code = 3262) n/a Negative - Negati ve POCT U PROT (test code = 3259) negative Negative - Negat sondra POCT U GLU (test code = 3256) negative Negative - Negati ve POCT U KETONE (test code = 3258) n/a Negative - Neg ative POCT U BLD (test code = 3257) n/a Negative - Negati ve [facility] URINALYSIS W/O SPECIFIC [id number] 19:44:00* Test Item Value Reference Range Interpretation Comme nts POCT PH U (test code = 3254) n/a 5-8 POCT U LEUK EST (test code = 3263) n/a Negative - Negative POCT U NIT (test code = 3262) n/a Negative - Negati ve POCT U PROT (test code = 3259) negative Negative - Negat sondra POCT U GLU (test code = 3256) negative Negative - Negati ve POCT U KETONE (test code = 3258) n/a Negative - Neg ative POCT U BLD (test code = 3257) n/a Negative - Negati ve [facility] [id number] 19:43:00* Test Item Value Reference Range Interpretation Comme nts POCT PREG (test code = 1605) Positive On board controls acceptable with C Line (test code = 3574) Yes POCT PREG LOT # (test code = 3575) POCT PREG TEST DATE ( test code = 3576) [facility] [id number] 19:43:00* Test Item Value Reference Range Interpretation Comme nts POCT PREG (test code = 1605) Positive On board controls acceptable with C Line (test code = 3574) Yes POCT PREG LOT # (test code = 3575) POCT PREG TEST DATE ( test code = 3576) [facility]
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
[2024-04-25 11:05] VITALS: TEMP 98
[2024-04-25 11:07] VITALS: BP 129/78; O2SAT 99
== END 2024-04-25 10:58 | disposition home or self-care (01) ==
LOC: ER 09:53
DX: M62.830 Muscle spasm of back (principal); M54.2 Cervicalgia; V49.49XA Driver injured in collision with other motor vehicles in traffic accident, initial encounter
CPT/HCPCS: 99283